=== PATIENT | female | born 2000 | race Caucasian/White ===

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

== ENCOUNTER 2021-01-11 13:18 | Inpatient (IN) | payer BC ==
[2021-01-11] VITALS (9 sets, daily range): BP systolic 122–137; BP diastolic 58–76
[~2021-01-11] VITALS: Ht 170.2 cm; Wt 111.0 kg
--- NOTE | 2021-01-11 13:09 | History & Physical-OB ---
OB - Chief Complaint & HPI Date/Time Date of Admission: Date of Admission: Date seen by a Provider: Jan 11, 2021 Time Seen by a Provider: 13:00 Chief Complaint/History OB-Reason for Admission/Chief: Obstetrical Complication Hx : 1 Hx Para: 0 Hx Last Menstrual Period: 08/05/20 Expected Date of Delivery: May 12, 2021 Gestational Age in Weeks: 22 Gestational Age in Days: 5 Indication for induction: other (Received call from Dr. Cook that patient's cerclage is failing. she was seen for her routine US at the [facility] and it appears that she has membranes protruding through the cervix. she is not having any pain. No bleeding and no discharge) Other reason for admission: Dr. 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 History of Labs AB -/- VDRL NR HBsAg - HIV - Rub I HCV - Received Rhogam 12/16/2020 Allergies and Home Medications Allergies Coded Allergies: Penicillins (Verified Allergy, Unknown, Rash, 01/11/21) Patient reports she was told by her dad that she had a rash. Patient does not know Home Medications Nifedipine 10 Mg Capsule, 10 MG PO Q6H, (Reported) Last Action: New Order Progesterone, Micronized 25 Gm Powder, 200 MG PV qhs, (Reported) Last Action: New Order Patient Home Medication List Home Medication List Reviewed: Yes OB - History Hx of Present Care: Yes Ultrasounds: Abnormal US findings Obstetrical Complications: Other (mo/mo twin with TTTS, Cerclage/short cervix) Medical Complications: None Information Induced Hypertension: No Maternal Gestational Diabetes: No Hemorrhage: No Obstetrical History Hx : 1 Hx Para: 0 Hx # Term Pregnancies: 0 Hx # Pregnancies: 0 Number of Living Children: 0 Hx Multiple Gestation: Yes Delivery History Hx Blood Disorders: No Patient Past Medical History None Social History/Family History Alcohol Use: Denies Use Smoking Cessation: Never smoker 2nd Hand Smoke Exposure: No Immunizations Hepatitis A: No Hepatitis B: Yes Tetanus Booster (TDap): Less than 5yrs Rubella: immune RPR/VDRL: Negative GBS Status: Unknown HBsAG: Negative OB - Admission Exam Physical Exam Vitals: see RN Note HEENT: NCAT Heart: Rhythm Normal Lungs: Clear Abdomen: Gravid Extremities: Normal Cervical Dilatation: other (deferred) Heart Rate: 140's (doppler +) OB - Assessment/Plan/Diagnosis Assessment Assessment: other (Mo/Mo twins with TTTS, cerclage, with protruding membranes, AB - blood type) Admission Dx 1. Twin with Angelina/mono twins, cerclage 2. protruding membranes suspect cerclage failure 3. Twin twin transfusion 4. Rh - 5. possible pcn allergy Plan transfer ev to [facility] due to extreme prematurity and NICU. also at request of Dr. Cook. Will give indocin 50 m po and then then 25 mg po q 6 h Magnesium IV to prevent contractions and for neuroprophylaxis. Ancef 2 grams and then 1 gram q 6 h due to unknown GBS status Betamethasone IM for lung maturity Transfer arranged through Dr. Cook Admission Status: Other (transfer) Plan Plan: Other (transfer) MIKE BULL DO Jan 11, 2021 13:09
[~2021-01-11 13:18] MED LIST: BETAMETHASONE ACE/NA PHOS 6 MG/ML (CELESTONE SOLUSPAN) ONE; CEPH500T PO; CYCL10TA9 PO; INDOMETHACIN 25 MG (INDOCIN) CAP PO ONE; MAGNESIUM 4 GM/100 ML IVPB 100 ML IV ONE; MAGNESIUM SULFATE DRIP 500 ML IV ONE; NS IV 1000 ML 1,000 ML ONE; ceFAZolin 2 GM IV Premixed 50 ML ONE
[2021-01-11] MEDS ORDERED: PROG25PO PV (13:26)
[2021-01-11] MEDS ORDERED: NIFE10CA PO (13:26)
[2021-01-11] MEDS ORDERED: INDOMETHACIN 25 MG (INDOCIN) CAP PO NR (13:45)
[2021-01-11] MEDS ORDERED: MAGNESIUM 4 GM/100 ML IVPB 100 ML IV SCH (13:45)
[2021-01-11] MEDS ORDERED: NS IV 1000 ML 1,000 ML IV SCH (13:45)
[2021-01-11] MEDS ORDERED: CALCIUM GLUC. 10% 4.65 MEQ/10 ML VIAL IV PRN (13:45)
[2021-01-11] MEDS ORDERED: BETAMETHASONE ACE/NA PHOS 6 MG/ML (CELESTONE SOLUSPAN) IM SCH (14:00)
[2021-01-11 14:08] LABS: BASOPHILS % (AUTO) 0 % (0-10); EOSINOPHILS % (AUTO) 0 % (0-10); HEMATOCRIT 30 % (35-52); HEMOGLOBIN 10.2 g/dL (11.5-16.0); LYMPHOCYTES # (AUTO) 1.2 X 10^3 (1.0-4.0); LYMPHOCYTES % (AUTO) 15 % (12-44); MEAN CORPUSCULAR HEMOGLOBIN 27 pg (25-34); MEAN CORPUSCULAR HGB CONC 34 g/dL (32-36); MEAN CORPUSCULAR VOLUME 78 fL (80-99); MEAN PLATELET VOLUME 9.7 fL (9.0-12.2); MONOCYTES # (AUTO) 0.3 X 10^3 (0.0-1.0); MONOCYTES % (AUTO) 4 % (0-12); NEUTROPHILS # (AUTO) 6.9 X 10^3 (1.8-7.8); NEUTROPHILS % (AUTO) 82 % (42-75); PLATELET COUNT 310 10^3/uL (130-400); WHITE BLOOD COUNT 8.5 10^3/uL (4.3-11.0)
[2021-01-11] MEDS ORDERED: MAGNESIUM SULFATE DRIP 500 ML IV SCH (14:15)
[2021-01-11] MEDS ORDERED: ceFAZolin 2 GM IV Premixed 50 ML IV ONE (15:00)
[2021-01-11] MEDS ORDERED: PREN1TAB79 PO (16:08)
[2021-01-11] MEDS ORDERED: INDOMETHACIN 25 MG (INDOCIN) CAP PO SCH (17:00)
== END 2021-01-11 15:10 | disposition short-term general hospital (02) | DRG 833 ==
LOC: WSo 13:18 → LDRP 13:19
PROVIDERS: ADMIT Obstetrics & Gynecology; ATTEND Obstetrics & Gynecology
DX: O34.32 Maternal care for cervical incompetence, second trimester (principal); O26.872 Cervical shortening, second trimester; Z3A.22 22 weeks gestation of pregnancy; O43.022 Fetus-to-fetus placental transfusion syndrome, second trimester; O30.012 Twin pregnancy, monochorionic/monoamniotic, second trimester; Z88.0 Allergy status to penicillin
CPT/HCPCS: 36415; 83735; 85025; 86850; 86900; 86901